=== PATIENT | female | born 1995 | race Caucasian/White ===

== ENCOUNTER 2024-03-23 10:03 | Inpatient (IN) | payer OTHER ==
[2024-03-23] MEDS: ELECTROLYTE-148 SOLN 1,000 ML IV SCH (10:35)
[2024-03-23 11:08] VITALS: BMI 35.3
[2024-03-23 11:10] LABS: BASO % 0.2 % (0-2.0); HEMATOCRIT 36.7 % (32.4-45.2); HEMOGLOBIN 12.6 GM/dL (10.7-15.3); LYMPH % 28.3 % (8-40); MCH 27.8 pg (25.7-33.7); MCHC 34.2 g/dl (32.0-36.0); MEAN CELL VOLUME 81.4 fl (80-96); MEAN PLT VOLUME 8.5 fl (7.5-11.1); MONO % 7.1 % (3.8-10.2); NEUT % 63.4 % (42.8-82.8); PLATELET COUNT 280 10^3/uL (134-434); RBC 4.51 M/mm3 (3.60-5.2); RDW 14.7 % (11.6-15.6); WHITE BLOOD COUNT 7.1 K/mm3 (4.0-10.0)
[2024-03-23 11:15] LABS: INR 0.97 (0.83-1.09); PROTHROMBIN TIME (PATIENT) 11.2 SEC (9.7-13.0)
[2024-03-23 11:18] LABS: ACTIVATED PTT 27.8 SECONDS (25.2-36.5)
[2024-03-23 11:29] LABS: BLOOD UREA NITROGEN 3.1 mg/dL (7-18)
[2024-03-23 11:32] LABS: CREATININE 0.5 mg/dL (0.55-1.3)
[2024-03-23] MEDS ORDERED: OXYTOCIN 30 UNITS in 0.9% NS 30 UNIT/500 ML INFUS.BAG IVPB ONE (11:39)
[2024-03-23] MEDS: OXYTOCIN 30 UNITS in 0.9% NS 30 UNIT/500 ML INFUS.BAG IVPB SCH (11:40)
[2024-03-23] MEDS ORDERED: FENTANYL/BUPIVACAINE/NS/PF - PCEA - 50 ML DISP.SYRIN EP ONE (12:49)
[2024-03-23] MEDS: FENTANYL/BUPIVACAINE/NS/PF - PCEA - 50 ML DISP.SYRIN EP SCH (13:45)
[2024-03-23] MEDS ORDERED: NALOXONE HCL 0.4 MG/ML VIAL IVPUSH PRN (14:04)
[2024-03-23] MEDS ORDERED: OXYTOCIN 20 UNITS in 0.9% NS 20 UNIT/1,000 ML INFUS.BAG IV ONE (15:22)
[2024-03-23] MEDS ORDERED: ACETAMINOPHEN 325 MG TABLET (FP) PO PRN (16:13)
[2024-03-23] MEDS ORDERED: BISACODYL 10 MG SUPP.RECT RC PRN (16:13)
[2024-03-23] MEDS ORDERED: METHYLERGONOVINE MALEATE 0.2 MG/1 ML AMP IM PRN (16:13)
[2024-03-23] MEDS ORDERED: oxyCODONE HCL 5 MG TABLET PO PRN (16:13)
[2024-03-23] MEDS: OXYTOCIN 20 UNITS in 0.9% NS 20 UNIT/1,000 ML INFUS.BAG IV SCH (16:30)
[2024-03-23 16:44] LABS: CORD BASE EXCESS -4.4 mmol/L (0-2); CORD PCO2 56.4 mmHg (30-78); CORD pH 7.247 (7.14-7.44)
[2024-03-23 16:48] LABS: CORD HCO3 21.7 mmHg (20-29); CORD PCO2 79.4 mmHg (30-78); CORD pH 7.054 (7.14-7.44)
[2024-03-23] MEDS: BENZOCAINE 20% 57 GM BOTTLE TP PRN (20:38)
[2024-03-23] MEDS: BENZOCAINE 28 GM HEMORRHOIDAL OINTMENT TP PRN (20:39)
[2024-03-23] MEDS: WITCH HAZEL 50% (TUCKS) 40 PAD/JAR PAD TP PRN (20:39)
[2024-03-24] MEDS: IBUPROFEN 600 MG TABLET (FP) PO PRN (00:12)
[2024-03-24 06:23] LABS: BASO % 0.2 % (0-2.0); EOS % 1.2 % (0-4.5); HEMATOCRIT 35.4 % (32.4-45.2); LYMPH % 25.4 % (8-40); MCH 28.3 pg (25.7-33.7); MCHC 33.9 g/dl (32.0-36.0); MEAN CELL VOLUME 83.5 fl (80-96); MEAN PLT VOLUME 8.3 fl (7.5-11.1); MONO % 6.4 % (3.8-10.2); NEUT % 66.8 % (42.8-82.8); PLATELET COUNT 255 10^3/uL (134-434); RBC 4.24 M/mm3 (3.60-5.2); RDW 14.4 % (11.6-15.6); WHITE BLOOD COUNT 9.6 K/mm3 (4.0-10.0)
[2024-03-24 21:16] VITALS: RESP 18
[2024-03-24] MEDS: SENNOSIDES/DOCUSATE COMBO (SENNA PLUS) TABLET (UD) PO PRN (21:17)
[2024-03-25 10:27] VITALS: BP 118/76; PULSE 93; TEMP 98.2
== END 2024-03-25 14:10 | disposition home or self-care (01) | DRG 560 ==
LOC: JLDR 10:03 → J3W 19:30
PROVIDERS: ADMIT Obstetrics & Gynecology; ATTEND Obstetrics & Gynecology
PROC: 10D07Z6 Extraction of Products of Conception, Vacuum, Via Natural or Artificial Opening (ICD-10-PCS; principal; 2024-03-23)
DX: O76 Abnormality in fetal heart rate and rhythm complicating labor and delivery (principal); Z3A.38 38 weeks gestation of pregnancy; Z37.0 Single live birth
CPT/HCPCS: 36415; 36600; 59025; 59409; 80048; 82803; 85025; 85610; 85730; 86780; 86850; 86900; 86901; G0463-25